=== PATIENT | female | born 1985 ===

== ENCOUNTER 2021-03-20 22:30 | Inpatient (IN) | payer BC, OTHER ==
[2021-03-20] MEDS: DEXTROSE 5%-LACTATED RINGERS 1,000 ML IV SCH (23:15)
[2021-03-20] MEDS ORDERED: NIFEdipine E.R. 30 MG TABLET ONE (23:41)
[2021-03-20] MEDS ORDERED: NIFEdipine E.R. 30 MG TABLET PO ONE (23:45)
[2021-03-20 23:52] LABS: BASO % 0.2 % (0-2.0); EOS % 0.9 % (0-4.5); HEMATOCRIT 34.9 % (32.4-45.2); HEMOGLOBIN 11.6 GM/dL (10.7-15.3); LYMPH % 24.4 % (8-40); MCH 28.2 pg (25.7-33.7); MCHC 33.3 g/dl (32.0-36.0); MEAN CELL VOLUME 84.7 fl (80-96); MEAN PLT VOLUME 9.6 fl (7.5-11.1); MONO % 7.3 % (3.8-10.2); NEUT % 67.2 % (42.8-82.8); PLATELET COUNT 237 K/MM3 (134-434); RBC 4.12 M/mm3 (3.60-5.2)
[2021-03-20 23:53] LABS: RETICULOCYTES 1.92 % (0.5-1.5)
[2021-03-20 23:55] LABS: CALCIUM 8.8 mg/dL (8.5-10.1)
[2021-03-20 23:56] LABS: BLOOD UREA NITROGEN 12.4 mg/dL (7-18)
[2021-03-20 23:58] LABS: URIC ACID 6.9 mg/dL (2.6-7.2)
[2021-03-20 23:59] LABS: CREATININE 0.6 mg/dL (0.55-1.3); INR 0.88 (0.83-1.09); PROTHROMBIN TIME (PATIENT) 10.9 SEC (9.7-13.0)
[2021-03-21 00:02] LABS: ACTIVATED PTT 27.2 SECONDS (25.2-36.5)
[2021-03-21 00:06] VITALS: BMI 33.3
[2021-03-21] MEDS ORDERED: LABETALOL HCL 200 MG TABLET (FP) ONE ×2 (00:24→08:50)
[2021-03-21] MEDS ORDERED: LABETALOL HCL 200 MG TABLET (FP) PO ONE (00:25)
[2021-03-21 00:53] LABS: HIV INTERPRETATION NEGATIVE (NEGATIVE)
[2021-03-21 04:18] LABS: EPI CELLS 22 /uL (0-25.1); HYALINE CASTS 1 /uL (0-3.1); URINE APPEARANCE CLEAR; URINE BACTERIA 836 /uL (0-1359); URINE BILIRUBIN NEGATIVE (NEGATIVE); URINE COLOR YELLOW; URINE GLUCOSE (UA) NEGATIVE (NEGATIVE); URINE KETONE NEGATIVE (NEGATIVE); URINE LEUK ESTERASE NEGATIVE (NEGATIVE); URINE NITRITE NEGATIVE (NEGATIVE); URINE PROTEIN 1+ (NEGATIVE); URINE RBC 12 /uL (0-23.9); URINE UROBILINOGEN 0.2 mg/dL (0.2-1.0); URINE WBC 14 /uL (0-25.8)
[2021-03-21] MEDS ORDERED: ACETAMINOPHEN 325 MG TABLET (FP) ONE ×3 (07:27→18:35)
[2021-03-21] MEDS: ACETAMINOPHEN 325 MG TABLET (FP) PO PRN ×3 (07:30→18:36)
[2021-03-21] MEDS: LABETALOL HCL 200 MG TABLET (FP) PO SCH (09:00)
[2021-03-21] MEDS ORDERED: OXYTOCIN 30 UNITS in 0.9% NS 30 UNIT/500 ML INFUS.BAG IVPB ONE (10:32)
[2021-03-21] MEDS ORDERED: AMPICILLIN SODIUM 2 GM VIAL ONE (10:32)
[2021-03-21] MEDS ORDERED: BUTORPHANOL TARTRATE 1 MG/ML VIAL IVPB ONE (10:36)
[2021-03-21] MEDS ORDERED: PROMETHAZINE HCL 25 MG/1 ML VIAL IVPB ONE (10:36)
[2021-03-21] MEDS ORDERED: AMPICILLIN - 2 GM in SODIUM CHLORIDE 100 ML IVPB ONE (10:37)
[2021-03-21] MEDS ORDERED: OXYTOCIN 30 UNITS in 0.9% NS 30 UNIT/500 ML INFUS.BAG IVPB SCH (10:45)
[2021-03-21] MEDS ORDERED: DEXTROSE 5%-LACTATED RINGERS 1,000 ML IV SCH (10:45)
[2021-03-21] MEDS ORDERED: AMPICILLIN SODIUM 1 GM VIAL ONE ×2 (13:16→17:15)
[2021-03-21] MEDS: AMPICILLIN - 1 GM in SODIUM CHLORIDE 100 ML IVPB SCH ×2 (13:46→17:29)
[2021-03-21] MEDS ORDERED: OXYTOCIN 20 UNITS in 0.9% NS 20 UNIT/1,000 ML INFUS.BAG IV ONE ×2 (19:41→23:23)
[2021-03-21] MEDS ORDERED: CITRIC ACID/SODIUM CITRATE 30 ML UNIT-DOSE CUP PO ONE (19:42)
[2021-03-21] MEDS ORDERED: ELECTROLYTE-148 SOLN 1,000 ML IV SCH (19:45)
[2021-03-21] MEDS ORDERED: OXYTOCIN 10 UNITS/ML VIAL ONE ×2 (19:46→20:28)
[2021-03-21] MEDS ORDERED: PHENYLEPHRINE HCL 10 MG/1 ML SINGLE DOSE VIAL ONE (19:46)
[2021-03-21] MEDS ORDERED: ceFAZolin SODIUM 1 GM VIAL ONE (19:46)
[2021-03-21] MEDS ORDERED: ONDANSETRON 4 MG/2 ML VIAL ONE ×2 (19:46→20:28)
[2021-03-21] MEDS ORDERED: KETOROLAC TROMETHAMINE 30 MG/1 ML VIAL ONE (19:46)
[2021-03-21] MEDS ORDERED: SODIUM CHLORIDE 0.9% P/F 10 ML VIAL IJ ONE (19:47)
[2021-03-21] MEDS ORDERED: morphine SULFATE/PF 0.5 MG/ML (2cc Syringe - QUVA) ONE (19:47)
[2021-03-21] MEDS ORDERED: oxyCODONE HCL 5 MG TABLET PO PRN ×2 (21:12)
[2021-03-21] MEDS ORDERED: SENNOSIDES/DOCUSATE COMBO (SENNA PLUS) TABLET (UD) PO PRN (21:12)
[2021-03-21] MEDS ORDERED: METHYLERGONOVINE MALEATE 0.2 MG/1 ML AMP IM PRN (21:12)
[2021-03-21] MEDS ORDERED: IBUPROFEN 800 MG/8 ML IJ IVPB PRN (21:12)
[2021-03-21] MEDS ORDERED: SIMETHICONE 80 MG TAB.CHEW (FP) PO PRN (21:12)
[2021-03-21] MEDS ORDERED: IBUPROFEN 600 MG TABLET (FP) PO PRN (21:12)
[2021-03-21] MEDS ORDERED: OXYTOCIN 20 UNITS in 0.9% NS 20 UNIT/1,000 ML INFUS.BAG IV SCH (21:15)
[2021-03-21] MEDS ORDERED: morphine SULFATE/PF 0.5 MG/ML (2cc Syringe - QUVA) EP ONE (21:20)
[2021-03-21] MEDS ORDERED: ONDANSETRON 4 MG/2 ML VIAL IVPUSH PRN (21:20)
[2021-03-21] MEDS ORDERED: ACETAMINOPHEN 1000 MG/100 ML VIAL (NON FORMULARY) IVPB ONE (21:21)
[2021-03-21] MEDS ORDERED: NIFEdipine E.R. 30 MG TABLET ONE (23:23)
[2021-03-21] MEDS: NIFEdipine E.R. 30 MG TABLET PO SCH (23:24)
[2021-03-21] MEDS ORDERED: ACETAMINOPHEN INJECTION 100 ML IVPB ONE (23:26)
[2021-03-22] MEDS: LABETALOL HCL 200 MG TABLET (FP) PO SCH ×3 (00:33→23:49)
[2021-03-22] MEDS: DEXTROSE 5%-LACTATED RINGERS 1,000 ML IV SCH (00:34)
[2021-03-22 09:46] LABS: BASO % 0.2 % (0-2.0); EOS % 0.6 % (0-4.5); HEMATOCRIT 32.3 % (32.4-45.2); HEMOGLOBIN 10.5 GM/dL (10.7-15.3); LYMPH % 17.6 % (8-40); MCH 28.1 pg (25.7-33.7); MCHC 32.5 g/dl (32.0-36.0); MEAN CELL VOLUME 86.4 fl (80-96); MEAN PLT VOLUME 9.6 fl (7.5-11.1); MONO % 6.7 % (3.8-10.2); NEUT % 74.9 % (42.8-82.8); PLATELET COUNT 202 K/MM3 (134-434); RBC 3.74 M/mm3 (3.60-5.2); RDW 13.7 % (11.6-15.6)
[2021-03-22] MEDS: PRENATAL VITAMINS W/ FOLIC ACID TABLET (FP) PO SCH (10:48)
[2021-03-22] MEDS: NIFEdipine E.R. 30 MG TABLET PO SCH (10:48)
[2021-03-22] MEDS ORDERED: BISACODYL 10 MG SUPP.RECT RC PRN (21:12)
[2021-03-23] MEDS: NIFEdipine E.R. 30 MG TABLET PO SCH (09:48)
[2021-03-23] MEDS: LABETALOL HCL 200 MG TABLET (FP) PO SCH ×2 (09:48→21:30)
[2021-03-23] MEDS: PRENATAL VITAMINS W/ FOLIC ACID TABLET (FP) PO SCH (09:48)
[2021-03-23] MEDS: ACETAMINOPHEN 325 MG TABLET (FP) PO PRN (21:30)
[2021-03-24] MEDS: NIFEdipine E.R. 30 MG TABLET PO SCH (10:33)
[2021-03-24] MEDS: PRENATAL VITAMINS W/ FOLIC ACID TABLET (FP) PO SCH (10:33)
[2021-03-24] MEDS: LABETALOL HCL 200 MG TABLET (FP) PO SCH (10:33)
[2021-03-24 14:21] VITALS: BP 134/62; PULSE 88; TEMP 98.6
== END 2021-03-24 18:00 | disposition home or self-care (01) | DRG 786 ==
LOC: JDEL 22:30 → JLDR 22:50 → J3W 03-22 00:05
PROVIDERS: ADMIT Obstetrics & Gynecology; ATTEND Obstetrics & Gynecology
PROC: 10D00Z1 Extraction of Products of Conception, Low, Open Approach (ICD-10-PCS; principal; 2021-03-21)
PROC: 3E033VJ Introduction of Other Hormone into Peripheral Vein, Percutaneous Approach (ICD-10-PCS; 2021-03-21)
DX: O14.13 Severe pre-eclampsia, third trimester (principal); O60.14X0 Preterm labor third trimester with preterm delivery third trimester, not applicable or unspecified; O76 Abnormality in fetal heart rate and rhythm complicating labor and delivery; O32.4XX0 Maternal care for high head at term, not applicable or unspecified; O36.5930 Maternal care for other known or suspected poor fetal growth, third trimester, not applicable or unspecified; Z3A.35 35 weeks gestation of pregnancy; Z37.0 Single live birth; Z37.1 Single stillbirth; O69.81X0 Labor and delivery complicated by cord around neck, without compression, not applicable or unspecified
CPT/HCPCS: 36415; 80048; 81003; 83010; 84460; 84550; 85025; 85032; 85045; 85610; 85730; 86780; 86850; 86900; 86901; 87389; C9803; J0131; U0003; U0005